=== PATIENT | female | born 1995 | race African-American/Black ===

== ENCOUNTER → 2022-08-13 11:29 | Outpatient (CLI) | payer OTHER, SELFPAY ==
--- NOTE | ~2022-08-13 | XR_ITS ---
Left Hand Technique: PA, oblique, and lateral views were obtained. Clinical History: Polydactyly Findings: No acute fracture or dislocation is seen. There is a small sixth digit present, with a prox imal, middle, and distal phalanx, as well as a partial, distal 6th metacarpal head. This digit does n ot directly articulate with any of the other osseous structures in the hand.. Joint spaces are preser latonya. Soft tissues are unremarkable. Impression: Polydactyly, as detailed above. Reviewed, dictated and finalized at location M. SECURITY COORDINATOR Impression: Polydactyly, as detailed above.
--- NOTE | ~2022-08-13 | XR_ITS ---
Right Hand Technique: PA, oblique, and lateral views were obtained. Clinical History: Polydactyly Findings: No acute fracture or dislocation is seen. The fifth metacarpal has a bifid appearance dista lly, with a 6th, much smaller digit, articulating with the lateral moiety of the fifth metacarpal. Th ere is a complete sixth proximal, middle, and distal phalanx. Impression: Polydactyly, as detailed above, with the 6th proximal phalanx articulating with the distal moiety of a bifid fifth metacarpal. Reviewed, dictated and finalized at location M. ING ROD MARKER Impression: Polydactyly, as detailed above, with the 6th proximal phalanx articulating with the distal moiety of a bifid fifth metacarpal.
== END ==
PROVIDERS: PCP Plastic Surgery; Visit Provider Plastic Surgery
DX: Q69.9 Polydactyly, unspecified (principal)
CPT/HCPCS: 73120

== ENCOUNTER 2023-03-03 12:00 | Emergency (ER) | payer OTHER, SELFPAY ==
[2023-03-03] VITALS (18 sets, daily range): BP systolic 98–102; BP diastolic 56–87; PULSE 69–91; RESP 13–28; TEMP 36.4; O2SAT 99–100
--- NOTE | ~2023-03-03 | US_ITS ---
EXAMINATION: US OB follow up, US OB transvaginal DATE: 03/03/2023 13:47 (accession [id number]), 03/03/2023 13:44 (accession [id number]) INDICATION: Abdominal pain. TECHNIQUE: Real-time transabdominal and transvaginal obstetric ultrasound. FINDINGS: No prior studies for comparison. There is a single living fetus in breech presentation. The placenta is anterior with previa. cardiac activity and movement is noted with a heart rate of 159 beats per minute. T he amniotic fluid volume is subjectively normal.. The following biometric data were obtained: BPD: 27mm corresponds to gestational age 14 weeks 5 days. Head circumference: 101mm corresponds to gestational age 14 weeks 5 days. Abdominal circumference: 79mm corresponds to gestational age 14 weeks 2 days. Femur length: 15mm corresponds to gestational age 14 weeks 3 days. Estimated weight: 97grams +/- 15grams.] The ovaries are within normal limits with normal Doppler signal. IMPRESSION: 1. Single living intrauterine in breech presentation with an estimated gestational age of 14 weeks 5 days by current ultrasound. EDC by current examination is 08/27/2023. 2. Placenta previa. 3: Normal ovaries. Reviewed, dictated and finalized at location L. IMPRESSION: 1. Single living intrauterine in breech presentation with an estimat ed gestational age of 14 weeks 5 days by current ultrasound. EDC by current exa mination is 08/27/2023. 2. Placenta previa. 3: Normal ovaries.
--- NOTE | 2023-03-03 12:04 | ECG_ITS ---
Measurements Intervals [place] Rate: 78 P: -12 [place]: 138 QRS: 8 QRSD: 83 T: -9 QT: 346 QTc: 395 Interpretive Statements SINUS RHYTHM VOLTAGE CRITERIA FOR LVH NONSPECIFIC T-WAVE ABNORMALITY- INFERIOR LEADS BORDERLINE ECG NO PREVIOUS ECG AVAILABLE FOR COMPARISON Electronically Signed On 03-03-2023 12:14:52 CDT by Zackary Lindsay D.O.
--- NOTE | 2023-03-03 12:31 | ED.ABDPAIN ---
HPI - Abdominal Pain General Chief Complaint: Abdominal Pain Stated Complaint: ABD PAIN, 3MONTHS PREG Time Seen by Provider: 03/03/23 12:25 History of Present Illness HPI narrative: Patient is a 27-year-old female , approximately 12 weeks by last menstrual period at the end of November here with abdominal pain and vomiting. Patient states that yesterday she began having some diffuse lower abdominal pain. It has been associated with nausea and several episodes of vomiting. She notes that throughout this thus far she has not had any vomiting. She denies any vaginal discharge, urinary symptoms, vaginal bleeding. Pain is cramping in nature and located diffusely over her lower abdomen. She additionally notes some midsternal chest pain after vomiting. She denies cough, congestion, fever, chills, sick contacts, shortness of breath. She has pain appointment scheduled for an OBGYN tomorrow, has not had an ultrasound this . She does note that she has been feeling pretty good throughout this , no vomiting up until yesterday, does note history of hyperemesis gravidarum and gestational diabetes with her prior pregnancies. No calf pain or leg swelling, no prior history of PE/DVT. She additionally notes a diffuse headache that began today. Related Data Allergies Allergy/AdvReac Type Severity Reaction Status Date / Time No Known Allergies Allergy Verified 12/27/22 14:32 Review of Systems Review of Systems: All systems reviewed & are unremarkable except as noted in HPI and below PMFSH Social History Social History (Updated 12/20/22 @ 12:04 by Elas Zaman MA) Smoking status: Never smoker Alcohol intake: current Alcohol use details: 2 PER MONTH Substance use: never Lack of Transportation: No Lack of Food: Never True Current Housing: I Have Housing Concerned About Future Housing: No Difficulty Paying Gas/Electric Bills: No Difficulty Paying for Meds: No Currently Unemployed: No Education: Associate Degree Difficulty w/ Childcare or Family Care: No Living arrangements: with family Exam Narrative: GENERAL: Well-appearing, well-nourished, and in no acute distress. HEAD: Normocephalic, atraumatic. EYES: PERRLA and EOMI. ENT: Nares clear. Mucous membranes moist. NECK: Supple. CHEST: Clear to auscultation. No respiratory distress. HEART: Regular rate and rhythm. Normal peripheral pulses. ABDOMEN: Soft, suprapubic tenderness, gravid abdomen, no rebound or guarding. EXTREMITIES: Normal range of motion. No pedal edema. SKIN: Warm, dry, no rash. NEURO: No focal deficits. Alert and oriented x3. PSYCH: Normal mood and affect. Course Course Emergency Course: Chart review performed. Here for abdominal pain and chest pain, noted to be . Only prior visit here in our system is for a hand procedure with plastic surgery. Patient seen evaluated, in no acute distress. She does have some lower abdominal tenderness without rebound or guarding. Differentials at this time include ectopic , UTI, viral syndrome. Tylenol ordered, IVF ordered, ultrasound ordered in additional to lab work and UA. Lab work and imaging reviewed. No leukocytosis, electrolytes grossly normal, mild hypokalemia which I will replete, normal renal function, UA negative for UTI, no bacteria. Pending US and viral studies. COVID, influenza, RSV negative. US shows single, live intrauterine with estimated gestational age of 14 weeks 5 days. Patient re-evaluated, feeling somewhat improved. Will do Zofran for discharge, she has close follow-up with her OBGYN tomorrow. Advised to follow up closely with PCP as well. Tylenol for pain. The results of pertinent diagnostic studies and exam findings were discussed. The patient?s provisional diagnosis and plan of care were discussed with the patient and present family. The patient and/or present family expressed understanding of th
--- NOTE | 2023-03-03 12:38 | PC.NURSE ---
EDP at bedside to assess pt.
[2023-03-03 12:44] LABS: Basophils Percent Auto 0.2 % (0.2-1.2); Eosinophils Absolute Auto 0.1 K/mm3 (0-0.3); Eosinophils Percent Auto 0.9 % (0-4.4); Hematocrit 33.5 % (37.0-47.0); Hemoglobin 10.3 g/dL (12.0-15.0); Immature Granulocyte Absolute 0.09 K/mm3 (0.00-0.031); Immature Granulocyte Percent A 0.9 % (0-0.5); Immature Platelet Fraction Pct 14.4 % (0.9-11.2); Lymphocytes Absolute Auto 1.42 K/mm3 (0.9-3.2); Lymphocytes Percent Auto 14.5 % (18.3-44.2); Mean Corpuscular HGB Conc 30.7 g/dl (32-36); Mean Corpuscular Hemoglobin 24.6 pg (26-34); Mean Corpuscular Volume 80.1 fl (80-100); Mean Platelet Volume 12.5 fl (7.4-10.4); Monocytes Absolute Auto 0.8 K/mm3 (0.1-0.6); Monocytes Percent Auto 8.3 % (2.6-8.5); Neutrophils Absolute Auto 7.4 K/mm3 (1.3-6.7); Neutrophils Percent Auto 75.2 % (45.5-73.1); Platelet Count Result 186 k/mm3 (150-375); Red Blood Count 4.18 M/mm3 (4.2-5.4); Red Cell Distribution Width 17.8 % (11.5-14.5); White Blood Count 9.8 K/mm3 (4.5-10.0)
[2023-03-03 12:48] LABS: Alanine Aminotransferase 13 U/L (6-35); Albumin Level 3.5 g/dL (3.5-5.1); Alkaline Phosphatase 79 U/L (38-126); Anion Gap 5 mmol/L (8-16); Aspartate Amino Transferase 18 U/L (14-36); Bilirubin,Total 0.3 mg/dL (0.2-1.3); Blood Urea Nitrogen 8 mg/dL (7-17); Calcium 8.9 mg/dL (8.4-10.2); Carbon Dioxide 24 mmol/L (22-30); Chloride 105 mmol/L (98-107); Estimated CRCL calculation 149 ml/min; Estimated Glomerular Filt Rate > 60; Glucose 139 mg/dL (65-110); Lipase 53 U/L (23-300); Potassium 3.3 mmol/L (3.4-5.0); Sodium 134 mmol/L (137-145)
[2023-03-03 12:54] LABS: Appearance Urine Cloudy (Clear); Bacteria Urine None Seen /hpf; Bilirubin Urine Negative (Negative); Blood Urine Negative (Negative); Color Urine Yellow (Yellow); Glucose Urine UA 2+ mg/dL (Negative); Ketones Urine Trace mg/dL (Negative); Leukocyte Esterase Ur Negative LEU/UL (Negative); Nitrate Urine Negative (Negative); Non Pathogenic Casts 0-2; Protein Urine Negative (Negative); RBC Urine 0-2 /hpf (0-2); Specific Grav Ur 1.026 (1.001-1.035); Squamous Epithelial Cell Urine None seen /hpf (Few); WBC Urine 0-5 /hpf
[2023-03-03 12:55] LABS: Add Urine Microscopic? YES
--- NOTE | 2023-03-03 12:59 | PC.NURSE ---
Patient off unit to US.
[2023-03-03 13:30] LABS: Influenza A QL RT-PCR Negative (Negative); Influenza B QL RT-PCR Negative (Negative); RSV RNA, RT-PCR Negative (Negative); SARS-CoV-2 RNA PCR Negative (Negative)
[2023-03-03] MEDS: SODIUM CHLORIDE 0.9% IV 1,000 ML 999 ML IV CONT (13:32)
[2023-03-03] MEDS: ACETAMINOPHEN 325 MG TABLET 650 MG PO (13:32)
[2023-03-03] MEDS: POTASSIUM BICARBONATE 25 MEQ TABEF 50 MEQ PO (15:29)
== END 2023-03-03 16:11 | disposition home or self-care (01) ==
PROVIDERS: Emergency Medicine; Emergency Provider Student in an Organized Health Care Education/Training Program
DX: O26.892 Other specified pregnancy related conditions, second trimester (principal); R10.84 Generalized abdominal pain; R51.9 Headache, unspecified; Z20.822 Contact with and (suspected) exposure to COVID-19; O44.02 Complete placenta previa NOS or without hemorrhage, second trimester; R94.31 Abnormal electrocardiogram [ECG] [EKG]; Z3A.14 14 weeks gestation of pregnancy
CPT/HCPCS: 36415; 76816; 76817; 80053; 81001; 81025; 83690; 85025; 85055; 87637; 93005; 96360; 99284; A9270; J7030

== ENCOUNTER 2023-03-19 12:57 | Emergency (ER) | payer OTHER, SELFPAY ==
--- NOTE | ~2023-03-19 | US_ITS ---
EXAMINATION: US OB limited DATE: 03/19/2023 18:12 INDICATION: Pelvic pain during second trimester . TECHNIQUE: Real-time ultrasound of the pelvis was performed utilizing both transabdominal and transva ginal probes. The interpreting radiologist was not present for the study. COMPARISON: None. FINDINGS: There is a single living fetus in breech presentation. The placenta is anterior with caudal margin 4 .6 cm from the internal cervical os. Normal cervical length of 4.1 cm. heart rate is 165 beats per minute (bpm). The amniotic fluid volume is subjectively normal. IMPRESSION: 1. Single living fetus in each presentation with heart rate of 165 bpm. 2. Anterior placenta with caudal margin 4.6 cm from the internal cervical os. Reviewed, dictated and finalized at location A.
[2023-03-19 13:10] VITALS: BP 133/80; PULSE 87; RESP 17; TEMP 36.9; O2SAT 100
--- NOTE | 2023-03-19 13:26 | ECG_ITS ---
Measurements Intervals [place] Rate: 87 P: 9 ID: 142 QRS: 7 QRSD: 82 T: 4 QT: 333 QTc: 402 Interpretive Statements SINUS RHYTHM VOLTAGE CRITERIA FOR LVH Electronically Signed On 03-20-2023 12:54:30 CDT by William Cruz M.D.
--- NOTE | 2023-03-19 13:31 | ED.PREGNANCY ---
HPI - General Chief complaint: OB/Uterine Contractions Stated complaint: abdominal pain in Time Seen by Provider: 03/19/23 13:30 Source: patient and family Mode of arrival: ambulatory Limitations: no limitations History of Present Illness HPI Narrative: 27 years old -[place] female came to the emergency room by private car because of left lower quadrant cramps, intermittent, sharp started 1 hour prior to arrival to the emergency room. On arrival to the ED patient holding her chest and telling the nurse that she had chest pain which resolved when I went see her in the room roughly within 10 minutes. Patient had a recent pelvic ultrasound and was told by her CLINICAL CARE COORDINATOR that her placenta is misplaced and if she have any abdominal pain or vaginal bleeding good to go to the emergency room immediately. Patient denies any vaginal bleeding or discharge. Currently patient have no chest pain just slight left lower quadrant sharp pain Related Data Allergies Allergy/AdvReac Type Severity Reaction Status Date / Time No Known Allergies Allergy Verified 12/27/22 14:32 Review of Systems Review of Systems: All systems reviewed & are unremarkable except as noted in HPI and below PMFSH Social History Social History Smoking status: Never smoker Alcohol intake: current Alcohol use details: 2 PER MONTH Substance use: never Lack of Transportation: No Lack of Food: Never True Current Housing: I Have Housing Concerned About Future Housing: No Difficulty Paying Gas/Electric Bills: No Difficulty Paying for Meds: No Currently Unemployed: No Education: Associate Degree Difficulty w/ Childcare or Family Care: No Living arrangements: with family Exam Narrative: General appearance: Well-developed, well-nourished Skin: Normal color Head: Normocephalic, nontraumatic Eyes: Clear conjunctiva ENT: Oropharynx normal, ears normal, nose normal Neck: Supple, nontender Chest and respiratory: Airway patent, no respiratory distress, no accessory muscle use Heart: Regular rate/rhythm Abdomen: Soft, slight tenderness left lower quadrant, no guarding or rebound, no organomegaly, quiet bowel sounds Vascular: Normal peripheral pulses, normal capillary refill. Musculoskeletal: Normal range of motion, nontender back Neurologic: Alert and oriented ?3, BASEBALL HAND SEWER is normal as tested, no gross motor deficit Course Reevaluation(s) Reevaluation #1: Abdominal pain and chest pain resolved immediately after arrival to the ED. Patient was hungry requested a meal, has been asymptomatic since arrival until the time of discharge. Date: 03/19/23 Time: 18:53 Vital Signs Vital signs: Vital Signs Temperature 36.9 C 03/19/23 13:10 Pulse Rate 87 03/19/23 13:10 Respiratory Rate 17 03/19/23 13:10 Blood Pressure 133/80 03/19/23 13:10 Pulse Oximetry 100 03/19/23 13:10 Temperature 36.7 C 03/19/23 13:35 Pulse Rate 81 03/19/23 13:35 Respiratory Rate 18 03/19/23 13:35 Blood Pressure 125/80 03/19/23 13:35 Pulse Oximetry 100 03/19/23 13:35 MDM - OB/Uterine Contractions MDM Narrative Medical decision making narrative: Patient is 17 weeks , presents with left lower quadrant pain that started within 1 hour prior to arrival. Patient was told that if she have abdominal pain or vaginal bleeding to go to the emergency room immediately because her placenta is an abnormal location and the position. Patient very anxious, on arrival to ED had chest pain which resolved in few minutes, Stable vital signs, physical examination showed slight tenderness left lo
[2023-03-19 13:35] VITALS: BP 125/80; PULSE 81; RESP 18; TEMP 36.7; O2SAT 100
[2023-03-19 13:55] LABS: Appearance Urine Clear (Clear); Bilirubin Urine Negative (Negative); Blood Urine Negative (Negative); Color Urine Yellow (Yellow); Glucose Urine UA 1+ mg/dL (Negative); Ketones Urine Negative (Negative); Leukocyte Esterase Ur Negative LEU/UL (Negative); Nitrate Urine Negative (Negative); Protein Urine Negative (Negative); Specific Grav Ur 1.015 (1.001-1.035); pH Urine 6.5 (5.0-9.0)
[2023-03-19 13:59] LABS: Add Urine Microscopic? NO
[2023-03-19] MEDS: SODIUM CHLORIDE 0.9% IV 1,000 ML 999 ML IV CONT (14:11)
[2023-03-19 14:15] LABS: Basophils Percent Auto 0.3 % (0.2-1.2); Eosinophils Absolute Auto 0.1 K/mm3 (0-0.3); Eosinophils Percent Auto 0.8 % (0-4.4); Hemoglobin 10.5 g/dL (12.0-15.0); Immature Granulocyte Absolute 0.11 K/mm3 (0.00-0.031); Immature Granulocyte Percent A 1.1 % (0-0.5); Lymphocytes Absolute Auto 1.44 K/mm3 (0.9-3.2); Lymphocytes Percent Auto 14.3 % (18.3-44.2); Mean Corpuscular HGB Conc 30.9 g/dl (32-36); Mean Corpuscular Hemoglobin 25.2 pg (26-34); Mean Corpuscular Volume 81.5 fl (80-100); Mean Platelet Volume 12.1 fl (7.4-10.4); Monocytes Percent Auto 9.9 % (2.6-8.5); Neutrophils Absolute Auto 7.4 K/mm3 (1.3-6.7); Neutrophils Percent Auto 73.6 % (45.5-73.1); Platelet Count Result 174 k/mm3 (150-375); Red Blood Count 4.17 M/mm3 (4.2-5.4); Red Cell Distribution Width 18.5 % (11.5-14.5)
[2023-03-19 14:20] LABS: Alanine Aminotransferase 12 U/L (6-35); Albumin Level 3.6 g/dL (3.5-5.1); Alkaline Phosphatase 84 U/L (38-126); Anion Gap 7 mmol/L (8-16); Aspartate Amino Transferase 21 U/L (14-36); Bilirubin,Total 0.3 mg/dL (0.2-1.3); Blood Urea Nitrogen 4 mg/dL (7-17); Calcium 8.9 mg/dL (8.4-10.2); Carbon Dioxide 23 mmol/L (22-30); Chloride 104 mmol/L (98-107); Estimated CRCL calculation 196 ml/min; Estimated Glomerular Filt Rate > 60; Glucose 101 mg/dL (65-110); Sodium 134 mmol/L (137-145)
[2023-03-19 18:52] VITALS: BP 128/77; PULSE 69; RESP 16; O2SAT 100
== END 2023-03-19 18:53 | disposition home or self-care (01) ==
PROVIDERS: Emergency Provider Emergency Medicine
DX: O26.892 Other specified pregnancy related conditions, second trimester (principal); R10.32 Left lower quadrant pain; Z3A.17 17 weeks gestation of pregnancy
CPT/HCPCS: 36415; 76815; 80053; 81001; 81003; 84702; 85025; 93005; 96360; 99284; J7030

== ENCOUNTER 2023-04-14 13:11 | Observation (INO) | payer OTHER, SELFPAY ==
[2023-04-14 13:03] VITALS: BP 130/64; PULSE 100; RESP 16; TEMP 36.1; O2SAT 100
[2023-04-14 13:24] VITALS: BP 120/74; PULSE 93
[2023-04-14 13:30] VITALS: BP 126/70; PULSE 98
[2023-04-14 13:32] VITALS: TEMP 36.7
[2023-04-14 13:46] VITALS: BP 90/56; PULSE 101
--- NOTE | 2023-04-14 13:51 | PC.NURSE ---
Addendum entered by Francoise Mccormick RN 04/14/23 13:53: Charted nurses note on wrong pt. Original Note: 0005--Dr. Owens to see pt. and evaluate post blood patch. Orders to DC home.
[2023-04-14 14:00] VITALS: BP 103/61; PULSE 94
[2023-04-14] MEDS: DEXTROSE 5%/LACTATED RINGERS 1,000 ML 999 ML IV CONT (14:16)
[2023-04-14] MEDS: ONDANSETRON INJ 4 MG/2 ML VIAL IV PUSH (14:19)
[2023-04-14] MEDS: LOPERAMIDE HCL 2 MG CAPSULE PO (14:19)
[2023-04-14 14:25] VITALS: BMI 34.2
--- NOTE | 2023-04-14 14:28 | OBADM ---
This patient, Laura Martinez, admitted to the OB room OB Post 112 for observation. Patient/family oriented to hospital policies and general routines including ID bracelet, bed and alarms, visiting hours, pain management, procedures, bathroom and other care routines, personal items, smoking policy, room service/diet, and visiting hours. Patient/Family are encouraged to report perceived risks to care and to ask questions if they do not understand what they are told or what they should do.
--- NOTE | 2023-05-01 20:04 | PM.OBTRLD ---
OB - Triage/Final Diagnosis Visit Information Comments/Additional reasons for admission: I have assessed the risk for this patient, Naisarahi Martinez, and determined that she would benefit from observation care.
--- NOTE | 2023-05-05 08:11 | PM.OBTRLD ---
OB - Triage/Final Diagnosis Visit Information Comments/Additional reasons for admission: I have assessed the risk for this patient, Laura Martinez, and determined that she would benefit from observation care. Final Diagnosis (1) Abdominal pain: Code(s): R10.9 - Unspecified abdominal pain Status: Acute
== END 2023-04-14 15:32 | disposition home or self-care (01) ==
PROVIDERS: Admitting Provider Obstetrics & Gynecology; Visit Provider Obstetrics & Gynecology
DX: O26.899 Other specified pregnancy related conditions, unspecified trimester (principal); R10.9 Unspecified abdominal pain; Z3A.00 Weeks of gestation of pregnancy not specified
CPT/HCPCS: 96374; A9270; G0378; G0379; J2405; J7121

== ENCOUNTER 2023-04-22 13:48 | Observation (INO) | payer OTHER, SELFPAY ==
[2023-04-22 14:00] VITALS: BMI 36.6
[2023-04-22 14:07] VITALS: BP 120/66; PULSE 91; RESP 18; TEMP 36.5
--- NOTE | 2023-04-22 15:01 | OBADM ---
This patient, Laura Martinez, admitted to the OB room OB Post 116 for observation. Patient/family oriented to hospital policies and general routines including ID bracelet, bed and alarms, visiting hours, pain management, procedures, bathroom and other care routines, personal items, smoking policy, room service/diet, and visiting hours. Patient/Family are encouraged to report perceived risks to care and to ask questions if they do not understand what they are told or what they should do.
--- NOTE | 2023-04-22 15:04 | PC.NURSE ---
1400- Dr. Bartlett notified of patient's arrival on unit and complaints of vomiting and diarrhea since last night. Orders received. [id number]- Attempted to initiate IV access, unable to at this time. Patient wants to rest and will try again later.
[2023-04-22] MEDS: DEXTROSE 5%/LACTATED RINGERS 1,000 ML 999 ML IV CONT (15:40)
[2023-04-22] MEDS: LOPERAMIDE HCL 2 MG CAPSULE 4 MG PO (15:41)
[2023-04-22] MEDS: ONDANSETRON INJ 4 MG/2 ML VIAL IV PUSH (15:41)
[2023-04-22 15:48] LABS: Basophils Percent Auto 0.2 % (0.2-1.2); Eosinophils Absolute Auto 0.1 K/mm3 (0-0.3); Eosinophils Percent Auto 0.6 % (0-4.4); Hematocrit 34.4 % (37.0-47.0); Hemoglobin 10.3 g/dL (12.0-15.0); Immature Granulocyte Absolute 0.07 K/mm3 (0.00-0.031); Immature Granulocyte Percent A 0.7 % (0-0.5); Lymphocytes Absolute Auto 1.04 K/mm3 (0.9-3.2); Lymphocytes Percent Auto 10.3 % (18.3-44.2); Mean Corpuscular HGB Conc 29.9 g/dl (32-36); Mean Corpuscular Hemoglobin 24.2 pg (26-34); Mean Corpuscular Volume 80.9 fl (80-100); Monocytes Absolute Auto 0.9 K/mm3 (0.1-0.6); Monocytes Percent Auto 8.4 % (2.6-8.5); Neutrophils Absolute Auto 8.1 K/mm3 (1.3-6.7); Neutrophils Percent Auto 79.8 % (45.5-73.1); Nucleated Red Blood Cells Perc 0.2 % (0.0-0.2); Platelet Count Result 177 k/mm3 (150-375); Red Blood Count 4.25 M/mm3 (4.2-5.4); Red Cell Distribution Width 17.9 % (11.5-14.5); White Blood Count 10.1 K/mm3 (4.5-10.0)
--- NOTE | 2023-04-22 15:50 | PC.NURSE ---
1535- IV access initiated. Patient has taken sips of ice water. No vomiting or diarrhea since being on the unit.
[2023-04-22 16:04] LABS: Alanine Aminotransferase 15 U/L (6-35); Albumin Level 3.6 g/dL (3.5-5.1); Alkaline Phosphatase 86 U/L (38-126); Anion Gap 7 mmol/L (8-16); Aspartate Amino Transferase 25 U/L (14-36); Bilirubin,Total 0.4 mg/dL (0.2-1.3); Blood Urea Nitrogen 4 mg/dL (7-17); Calcium 8.7 mg/dL (8.4-10.2); Carbon Dioxide 24 mmol/L (22-30); Chloride 105 mmol/L (98-107); Estimated CRCL calculation 141 ml/min; Estimated Glomerular Filt Rate > 60; Glucose 101 mg/dL (65-110); Potassium 3.7 mmol/L (3.4-5.0); Sodium 136 mmol/L (137-145)
[2023-04-22 16:12] LABS: Platelet Estimate Adequate (Adequate); Schistocytes None Seen (NORMAL)
[2023-04-22 16:13] LABS: Anisocytosis 2+ (NORMAL); Hypochromasia 1+ (NORMAL)
[2023-04-22 16:48] LABS: Appearance Urine Cloudy (Clear); Bacteria Urine Rare /hpf; Bilirubin Urine Negative (Negative); Blood Urine Negative (Negative); Color Urine Yellow (Yellow); Glucose Urine UA 3+ mg/dL (Negative); Ketones Urine 1+ mg/dL (Negative); Leukocyte Esterase Ur Negative LEU/UL (Negative); Nitrate Urine Negative (Negative); Non Pathogenic Casts 0-2; Protein Urine Negative (Negative); RBC Urine 0-2 /hpf (0-2); Specific Grav Ur 1.024 (1.001-1.035); Squamous Epithelial Cell Urine Few /hpf (Few); WBC Urine 0-5 /hpf
[2023-04-22 17:07] LABS: Add Urine Microscopic? YES
[2023-04-22 17:14] VITALS: BP 104/63; PULSE 85
--- NOTE | 2023-04-22 17:30 | PC.NURSE ---
1709- Dr. Bartlett notified of lab results and patient able to eat crackers and drink water without any vomiting/diarrhea. Okay to discharge.
--- NOTE | 2023-05-15 21:23 | P.PNOB_ITS ---
OB - Triage/Final Diagnosis Visit Information Comments/Additional reasons for admission: I have assessed the risk for this patient, Laura Martinez, and determined that she would benefit from observation care. Evaluation Laboratory results: Laboratory Tests 04/22/23 14:31 WBC 10.1 H RBC 4.25 Hgb 10.3 L Hct 34.4 L MCV 80.9 MCH 24.2 L MCHC 29.9 L RDW 17.9 H Plt Count 177 MPV 12.0 H Immature Gran % (Auto) 0.7 H Neut % (Auto) 79.8 H Lymph % (Auto) 10.3 L [place] % (Auto) 8.4 Eos % (Auto) 0.6 Baso % (Auto) 0.2 Lymph # (Auto) 1.04 [place] # (Auto) 0.9 H Eos # (Auto) 0.1 Baso # (Auto) 0.0 Abs Immat Gran (auto) 0.07 H Absolute Neuts (auto) 8.1 H Absolute Nucleated RBC 0.0 Nucleated RBC % 0.2 Platelet Estimate Adequate Hypochromasia 1+ Anisocytosis 2+ Schistocytes None seen Sodium 136 L Potassium 3.7 Chloride 105 Carbon Dioxide 24 Anion Gap 7 L BUN 4 L Creatinine 0.50 L Estim Creat Clear Calc 141 Estimated GFR > 60 Glucose 101 Calcium 8.7 Total Bilirubin 0.4 AST 25 ALT 15 Alkaline Phosphatase 86 Total Protein 8.0 Albumin 3.6 Urine Color Yellow Urine Appearance Cloudy H Urine pH 7.0 Ur Specific [place] 1.024 Urine Protein Negative Urine Glucose (UA) 3+ H Urine Ketones 1+ H Ur Blood (Man) Negative Urine Nitrate Negative Urine Bilirubin Negative Urine Urobilinogen 1.0 Leukocyte Esterase Rfl Negative Urine RBC 0-2 Urine WBC 0-5 Ur Squamous Epith Cells Few Urine Bacteria Rare Urine Casts 0-2 Final Diagnosis (1) Nausea and vomiting: Code(s): R11.2 - Nausea with vomiting, unspecified Status: Acute
== END 2023-04-22 21:15 | disposition home or self-care (01) ==
PROVIDERS: Admitting Provider Obstetrics & Gynecology; Visit Provider Obstetrics & Gynecology
DX: O21.9 Vomiting of pregnancy, unspecified (principal); Z3A.21 21 weeks gestation of pregnancy
CPT/HCPCS: 36415; 80053; 81001; 85025; 96361; 96374; A9270; G0378; G0379; J2405; J7121